=== PATIENT | female | born 1990 | race Two or more races ===

== ENCOUNTER 2023-02-24 13:21 | Emergency (ER) | payer OTHER ==
[~2023-02-24] VITALS: Ht 172.7 cm; Wt 95.1 kg
[2023-02-24 14:29] LABS: Basophils % (auto) 0.6 % (0.0-2.0); Eosinophils # (auto) 0 10 ^3/uL (0-0.8); Monocytes # (auto) 0.6 10 ^3/uL (0-1.3); Nucleated Red Blood Cells % 0.1 %
[2023-02-24] MEDS ORDERED: ONDANSETRON ODT 4 MG TAB PO ONE (14:30)
[2023-02-24 14:32] LABS: Basophils # (auto) 0.1 10 ^3/uL (0-0.2); Eosinophils % (auto) 0.2 % (0.0-7.0); Hematocrit 36.1 % (36.0-46.0); Hemoglobin 11.4 g/dL (12.2-16.2); Lymphocytes # (auto) 1.6 10 ^3/uL (0.4-5.4); Lymphocytes % (auto) 18.2 % (10.0-50.0); Mean Corpuscular Hemoglobin 25.4 pg (28.0-32.0); Mean Corpuscular Hgb Conc. 31.6 g/dL (32.0-36.0); Mean Corpuscular Volume 80.4 fL (80.0-100.0); Monocytes % (auto) 6.5 % (0.0-12.0); Neutrophils # (auto) 6.6 10 ^3/uL (1.6-8.6); Neutrophils % (auto) 74.5 % (37.0-80.0); Red Blood Cells 4.49 10^6/uL (4.0-5.20); Red Cell Distribution Width 15.4 % (11.8-14.3); White Blood Cell 8.9 10^3/uL (4.4-10.8)
[2023-02-24 14:52] LABS: Albumin 4.1 g/dL (3.4-5.0); Potassium 4.1 mmol/L (3.5-5.1)
[2023-02-24 14:56] LABS: BUN/Creatinine Ratio 9.3 (10.0-20.0); Bilirubin, Total 0.4 mg/dL (0.2-1.0); Total Protein 8.3 g/dL (6.4-8.2)
[2023-02-24 16:01] LABS: Urine Bacteria FEW /hpf (None Seen); Urine Blood Negative /uL (Negative); Urine Mucus FEW (None Seen); Urine Specific Gravity 1.022 (1.001-1.035); Urine WBC 2 /hpf (0 - 5)
[2023-02-24 16:57] VITALS: BP 116/85
== END 2023-02-24 16:59 | disposition home or self-care (01) ==
LOC: EDBD 13:21 → ER 13:21
DX: F41.9 Anxiety disorder, unspecified (principal); R94.31 Abnormal electrocardiogram [ECG] [EKG]
CPT/HCPCS: 36415; 80053; 81001; 85025; 93005; 99284; Q0162